=== PATIENT | female | born 1985 | race Caucasian/White ===

== ENCOUNTER 2018-01-24 18:08 | Emergency (ER) | payer MEDICAID ==
[~2018-01-24] VITALS: Ht 170.2 cm; Wt 122.0 kg
[2018-01-25] MEDS ORDERED: IBUPROFEN 600MG TABLET PO STA (03:07)
[2018-01-25 03:56] VITALS: BP 154/92
== END 2018-01-25 04:00 | disposition home or self-care (01) ==
LOC: ER 21:48
DX: J06.9 Acute upper respiratory infection, unspecified (principal); M60.9 Myositis, unspecified; Z94.4 Liver transplant status
CPT/HCPCS: 71045; 81025; 87070; 87430; 99285

== ENCOUNTER 2018-09-11 16:37 | Emergency (ER) | payer MEDICAID ==
[~2018-09-11] VITALS: Ht 170.2 cm; Wt 118.0 kg
[2018-09-11 17:42] LABS: CLARITY URINE CLEAR (CLEAR); COLOR URINE YELLOW (YELLOW); KETONES URINE NEGATIVE (NEGATIVE); LEUKOCYTE ESTERASE URINE NEGATIVE (NEGATIVE); NITRITE URINE NEGATIVE (NEGATIVE); OCCULT BLOOD URINE NEGATIVE (NEGATIVE); PH URINE 5.5 (4.5-8.0); PROTEIN URINE NEGATIVE (NEGATIVE); SPECIFIC GRAVITY URINE 1.017 (1.005-1.030); UROBILINOGEN URINE 0.2 E.U./dL (0.2-1.0)
[2018-09-11] MEDS ORDERED: KETOROLAC 30MG/ML VIAL IM ONE (19:15)
[2018-09-11 20:05] VITALS: BP 164/95
== END 2018-09-11 20:05 | disposition home or self-care (01) ==
LOC: ER 16:58
DX: M54.30 Sciatica, unspecified side (principal); F17.210 Nicotine dependence, cigarettes, uncomplicated
CPT/HCPCS: 81003; 81025; 96372; 99283; J1885

== ENCOUNTER 2019-05-15 14:43 | Emergency (ER) | payer MEDICAID ==
[~2019-05-15] VITALS: Ht 170.2 cm; Wt 110.0 kg
[2019-05-15] MEDS ORDERED: SODIUM CHLORIDE 0.9% 1,000 ML IV ONE (16:35)
[2019-05-15] MEDS ORDERED: ONDANSETRON HCL 4MG/2ML INJ IV ONE (16:45)
[2019-05-15] MEDS ORDERED: MORPHINE SULFATE 4 MG/ML CPJ (NOT FOR IM USE) IV ONE (16:45)
[2019-05-15 17:09] LABS: BASOPHILS % 0.7 % (0.0-2.0); EOSINOPHILS % 1.7 % (0.0-5.0); HEMATOCRIT. 39.9 % (36.0-48.0); HEMOGLOBIN. 13.3 g/dL (12.0-16.0); LYMPHOCYTES % 37.8 % (20.0-50.0); MEAN CORPUSCULAR HEMOGLOBIN 28.5 pg (28.0-32.0); MEAN CORPUSCULAR VOLUME 85.5 fL (81.0-99.0); MEAN PLATELET VOLUME 8.5 fl (7.4-10.4); MONOCYTES % 6.8 % (2.0-8.0); PLATELET 273 x1000/uL (130-400); RED BLOOD CELL COUNT 4.67 mill/uL (4.2-5.4); RED CELL DISTRIBUTION WIDTH 15.2 % (11.6-14.6)
[2019-05-15 17:15] LABS: CHLORIDE 110 mEq/L (98-107)
[2019-05-15 17:28] LABS: B-HCG QUANTITATIVE < 1 mIU/mL (<3)
[2019-05-15 18:15] VITALS: BP 133/75
== END 2019-05-15 18:34 | disposition home or self-care (01) ==
LOC: ER 14:56
DX: N92.0 Excessive and frequent menstruation with regular cycle (principal); I10 Essential (primary) hypertension; M79.606 Pain in leg, unspecified
CPT/HCPCS: 36415; 76830; 76856; 80053; 81025; 84702; 85025; 86850; 86900; 86901; 96374; 96375; 99284; J2270; J2405; J7030

== ENCOUNTER 2019-07-01 01:26 | Emergency (ER) | payer MEDICAID ==
[~2019-07-01] VITALS: Ht 170.2 cm; Wt 111.7 kg
[2019-07-01] MEDS: KETOROLAC 60MG/2ML VIAL IM ONE (03:31)
[2019-07-01 05:06] VITALS: BP 151/85
== END 2019-07-01 06:55 | disposition home or self-care (01) ==
LOC: ER 01:26
DX: I10 Essential (primary) hypertension (principal); J06.9 Acute upper respiratory infection, unspecified; F17.290 Nicotine dependence, other tobacco product, uncomplicated
CPT/HCPCS: 71045; 87804; 93005; 96372; 99284; J1885